=== PATIENT | female | born 1995 | race Caucasian/White ===

== ENCOUNTER 2019-10-27 20:42 | Emergency (ER) | payer OTHER, SELFPAY ==
[2019-10-27 20:42] VITALS: BP 129/89; PULSE 108; RESP 20; TEMP 36.8; O2SAT 100
--- NOTE | 2019-10-27 21:22 | ED_ITS ---
HPI - Wound/Laceration General Chief Complaint: Wound/Laceration Stated Complaint: lac Time Seen by Provider: 10/27/19 20:45 History of Present Illness HPI narrative: Patient is a 24-year-old female who presents to the ER with a small laceration to the left hand. Was at work and scratched on some metal. 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 Her last tetanus shot was over 10 years ago according to her. Bleeding is controlled. No new numbness or tingling. Normal range of motion. Related Data Allergies Allergy/AdvReac Type Severity Reaction Status Date / Time diphenhydramine Allergy Hives Verified 10/27/19 20:53 [From Benadryl] Review of Systems Review of Systems: All systems reviewed & are unremarkable except as noted in HPI and below Integumentary/Breasts: Comments: skin lac of left hand Neurologic: Denies focal weakness and Denies numbness PMFSH Past Medical History Medical History (Updated 10/27/19 @ 21:42 by Deangelo Lyles MD) No pertinent past medical history Surgical History Surgical History (Updated 10/27/19 @ 21:24 by Deangelo Lyles MD) No pertinent past surgical history Social History Social History Gender identity (if verbalized by the patient): Female Exam Narrative: Exam Narrative: GENERAL: Well-appearing, well-nourished, and in no acute distress. HEAD: Normocephalic, atraumatic. HEART: Regular rate and rhythm. Normal peripheral pulses. EXTREMITIES: Normal range of motion. No edema. Flap-like laceration to the left hand at the second MCP that is superficial and not bleeding. 1.5 cm in length. SKIN: Warm, dry, no rash. Back as noted above. NEURO: No focal numbness. Alert and oriented x3. PSYCH: Normal mood and affect. Course Vital Signs Vital signs: Vital Signs Temperature 98.2 F 10/27/19 20:42 Pulse Rate 108 H 10/27/19 20:42 Respiratory Rate 20 10/27/19 20:42 Blood Pressure 129/89 10/27/19 20:42 Pulse Oximetry 100 10/27/19 20:42 Temperature 98.2 F 10/27/19 20:42 Pulse Rate 108 H 10/27/19 20:42 Respiratory Rate 20 10/27/19 20:42 Blood Pressure 129/89 10/27/19 20:42 Pulse Oximetry 100 10/27/19 20:42 Procedures Laceration Laceration 1: Date: 10/27/19 Time: 21:30 Site: hand Side (If applicable): left Size (cm): 1.5 Description: linear Depth: simple, single layer Pre-repair: irrigated ====== Skin Level ====== Skin layer closed with: dermabond ====== Subcutaneous Layer ====== ====== Muscle Layer ====== ====== Tendon Layer ====== Discharge Plan Discharge Clinical Impression: Laceration Patient Disposition: Home, Self-Care Condition: Stable Instructions: Laceration (ED), Skin Adhesive Care (ED) Additional Instructions: He had a small laceration that was glued. This should heal without issue. Return to the ER if you have pus draining from the wound, you have fever over 100.4 ?F, or the skin is red and hot and there is redness streaking up the arm. Follow-up/Referrals: PHYSICIAN,[facility] [Primary Care Provider] -
[2019-10-27 21:49] VITALS: BP 117/81; PULSE 94; RESP 18; TEMP 36.8; O2SAT 100
[2019-10-27] MEDS: TETANUS,DIPHTHERIA,AC PERTUSSIS ADULT (0.5 ML) BOOSTRIX IM (21:49)
== END 2019-10-27 21:50 | disposition home or self-care (01) ==
PROVIDERS: Emergency Provider Emergency Medicine
DX: S61.412A Laceration without foreign body of left hand, initial encounter (principal); W26.9XXA Contact with unspecified sharp object(s), initial encounter; Z23 Encounter for immunization
CPT/HCPCS: 12001; 90471; 90715; 99282

== ENCOUNTER 2020-03-27 15:24 | Emergency (ER) | payer OTHER, SELFPAY ==
[2020-03-27 15:41] VITALS: BP 127/71; PULSE 89; RESP 20; TEMP 36.4; O2SAT 100
[2020-03-27 15:56] LABS: Basophils Absolute Auto 0.1 K/mm3 (0.0-0.1); Basophils Percent Auto 0.4 % (0.2-1.2); Eosinophils Absolute Auto 0.5 K/mm3 (0-0.3); Eosinophils Percent Auto 3.3 % (0-4.4); Hematocrit 38.1 % (37.0-47.0); Hemoglobin 12.5 g/dL (12.0-15.0); Immature Granulocyte Absolute 0.09 K/mm3 (0.00-0.031); Immature Granulocyte Percent A 0.6 % (0-0.5); Lymphocytes Absolute Auto 3.06 K/mm3 (0.9-3.2); Lymphocytes Percent Auto 21.7 % (18.3-44.2); Mean Corpuscular HGB Conc 32.8 g/dl (32-36); Mean Corpuscular Hemoglobin 26.8 pg (26-34); Mean Corpuscular Volume 81.6 fl (80-100); Mean Platelet Volume 9.7 fl (7.4-10.4); Monocytes Absolute Auto 0.7 K/mm3 (0.1-0.6); Monocytes Percent Auto 5.3 % (2.6-8.5); Neutrophils Absolute Auto 9.7 K/mm3 (1.3-6.7); Neutrophils Percent Auto 68.7 % (45.5-73.1); Platelet Count Result 360 k/mm3 (150-375); Red Blood Count 4.67 M/mm3 (4.2-5.4); Red Cell Distribution Width 13.1 % (11.5-14.5); White Blood Count 14.1 K/mm3 (4.5-10.0)
[2020-03-27 16:09] LABS: Alanine Aminotransferase 15 U/L (4-35); Albumin Level 4.2 g/dL (3.5-5.1); Alkaline Phosphatase 78 U/L (38-126); Anion Gap 11 mmol/L (8-16); Aspartate Amino Transferase 20 U/L (14-36); Bilirubin,Total 0.4 mg/dL (0.2-1.3); Blood Urea Nitrogen 12 mg/dL (7-17); Calcium 9.1 mg/dL (8.4-10.2); Carbon Dioxide 23 mmol/L (22-30); Chloride 104 mmol/L (98-107); Estimated Glomerular Filt Rate > 60; Glucose 108 mg/dL (65-105); Lipase 114 U/L (23-300); Potassium 4.4 mmol/L (3.4-5.0); Sodium 138 mmol/L (137-145)
[2020-03-27 16:15] LABS: Add Urine Microscopic? YES; Appearance Urine Cloudy (Clear); Bacteria Urine Trace /hpf; Bilirubin Urine Negative (Negative); Blood Urine Negative (Negative); Color Urine Yellow (Yellow); Glucose Urine UA Negative (Negative); Ketones Urine Negative (Negative); Leukocyte Esterase Ur Negative LEU/UL (Negative); Mucus Urine Rare /lpf; Nitrate Urine Positive (Negative); Protein Urine Negative (Negative); RBC Urine 0-2 /hpf (0-2); Specific Grav Ur 1.025 (1.001-1.035); Squamous Epithelial Cell Urine Occasional /hpf (Few)
[2020-03-27 16:16] VITALS: BP 131/73; PULSE 85; RESP 18; O2SAT 100
--- NOTE | 2020-03-27 16:51 | ED.ABDPAIN ---
HPI - Abdominal Pain General Chief Complaint: Abdominal Pain <Robin Marin PA-C - Last Filed: 03/27/20 16:57> Stated Complaint: abd pain <MIKE Delarosa Last Filed: 03/27/20 16:57> Time Seen by Provider: 03/27/20 16:18 <MIKE Delarosa Last Filed: 03/27/20 16:57> Source: patient and family <MIKE Delarosa Last Filed: 03/27/20 16:57> Mode of arrival: ambulatory <MIKE Delarosa Last Filed: 03/27/20 16:57> Limitations: no limitations <Robin Marin PA-C - Last Filed: 03/27/20 16:57> History of Present Illness HPI narrative: Patient is a 24-year-old female who presents to emergency department for evaluation of suprapubic abdominal pain and burning with urination patient notes that the symptoms began today were more intense in the early hours of the morning patient on arrival notes mild discomfort in the suprapubic region denies any fever chills nausea vomiting similar occurrence and is otherwise in no distress upon arrival <Robin Marin PA-C - Last Filed: 03/27/20 16:57> Related Data Home Medications: Home Medications Medication Instructions Recorded Confirmed loratadine [Claritin] 10 mg PO DAILY 03/27/20 <Robin Marin PA-C - Last Filed: 03/27/20 16:57> Allergies/Adverse Reactions: Allergies Allergy/AdvReac Type Severity Reaction Status Date / Time diphenhydramine Allergy Hives Verified 10/27/19 20:53 [From Benadryl] <Robin Marin PA-C - Last Filed: 03/27/20 16:57> Review of Systems Review of Systems: All systems reviewed & are unremarkable except as noted in HPI and below <Robin Marin PA-C - Last Filed: 03/27/20 16:57> PMFSH Past Medical History Medical History: Medical History No pertinent past medical history <MIKE Delarosa Last Filed: 03/27/20 16:57> Surgical History Surgical History: Surgical History No pertinent past surgical history <Robin Marin PA-C - Last Filed: 03/27/20 16:57> Social History Social History: Social History (Updated 03/27/20 @ 16:53 by Robin Marin PA-C) Smoking status: Never smoker Gender identity (if verbalized by the patient): Female <Robin Marin PA-C - Last Filed: 03/27/20 16:57> Exam Narrative: Exam Narrative: GENERAL: Well-appearing, well-nourished, and in no acute distress. HEAD: Normocephalic, atraumatic. EYES: PERRLA and EOMI. ENT: Nares clear, no rhinorrhea or epistaxis. Mucous membranes moist. CHEST: Clear to auscultation. No respiratory distress. No wheezes rales or rhonchi HEART: Regular rate and rhythm. No murmur heard. Normal peripheral pulses. ABDOMEN: Soft, suprapubic tenderness to palpation, nondistended EXTREMITIES: Normal range of motion. No edema. SKIN: Warm, dry, no rash. NEURO: No focal deficits. Alert and oriented x3. PSYCH: Normal mood and affect. <Robin Marin PA-C - Last Filed: 03/27/20 16:57> Course Course Emergency Course: Patient in the room in no distress will be treated for urinary tract infection afebrile nontoxic-appearing no distress and felt appropriate for outpatient reevaluation <Robin Marin PA-C - Last Filed: 03/27/20 16:57> Vital Signs Vital signs: Vital Signs Temperature 36.4 C L 03/27/20 15:41 Pulse Rate 89 03/27/20 15:41 Respiratory Rate 20 03/27/20 15:41 Blood Pressure 127/71 03/27/20 15:41 Pulse Oximetry 100 03/27/20 15:41 Temperature 36.4 C L 03/27/20 15:41 Pulse Rate 74 03/27/20 17:07 Respiratory Rate 16 03/27/20 17:07 Blood Pressure 117/70 03/27/20 17:07 Pulse Oximetry 99 03/27/20 17:07 <Robin Marin PA-C - Last Filed: 03/27/20 16:57> Vital Signs Temperature 36.4 C L 03/27/20 15:41 Pulse Rate 89 03/27/20 15:41 Respiratory Rate 20 03/27/20 15:41
[2020-03-27 17:07] VITALS: BP 117/70; PULSE 74; RESP 16; O2SAT 99
== END 2020-03-27 17:08 | disposition home or self-care (01) ==
PROVIDERS: Emergency Medicine; Emergency Provider Emergency Medicine
DX: N39.0 Urinary tract infection, site not specified (principal); R10.2 Pelvic and perineal pain
CPT/HCPCS: 36415; 80053; 81001; 81025; 83690; 85025; 99283